=== PATIENT | male | born 1945 | race Caucasian/White ===

== ENCOUNTER 2018-12-11 18:39 | Emergency (ER) | payer MEDICARE, BC ==
[2018-12-11] MEDS ORDERED: Aspirin 81 MG Tab.Chew PO ONE (18:47)
--- NOTE | 2018-12-11 19:06 | EDM.PDOC ---
ED HPI GENERAL MEDICAL PROBLEM - General Chief Complaint: Chest Pain Stated Complaint: SOB, Dizziness, Jaw Pain Time Seen by Provider: 12/11/18 18:50 Source of Information: Reports: Patient History Limitations: Reports: No Limitations - History of Present Illness INITIAL COMMENTS - FREE TEXT/NARRATIVE: This patient is a 73 year old male that presents to the ER. Patient is accompanied by at bedside. They arrived via private vehicle. Earlier today , after 4pm the called the clinic and spoke to the nurse about the patients symptoms of chest pain, shortness of breath, jaw pain, and lightheaded. The RN Steff told me about the patient symptoms, patient was instructed to call 911 or her to go to the nearest ER. The patient arrives here in our ER now. The patent reports that over the last 3 months he has been feeling fatigued and not very well. Patient reports that he was seen in [facility] 3 days ago for that complaint. 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 He reports george carrying these items, he became very short of breath, left jaw pain, a "tick" of chest pain, fatigued, lightheaded. He reports that these symptoms were so extreme that he had to lay down on the ground for a while. He denies having syncope. The patient reports the episode lasted about 30 minutes, then went away. He reports that he had about 3 or 4 of these episodes 2 days ago. He reports that he did not have an episode yesterday. Reports that yesterday no physical activity. He reports then again today at 4pm, he was loading a zero turn mower on a truck and ratching the mower when he again experienced lightheadedness, chest pain, left jaw ache, shortness of breath, and overall fatigue/malaise. He reports it lasted for 30 minutes and did not resolve until he was done with strenuous activity. Patient reports he stopped smoking in 1984. Onset Date: 12/09/18 Location: Reports: Face, Chest Quality: Reports: Ache Severity: Moderate Improves with: Reports: Rest Worsens with: Reports: Other (walking while carrying heacy junk yard material. ) Context: Reports: Activity Associated Symptoms: Reports: Chest Pain, Malaise, Shortness of Breath, Weakness (generally). Denies: Confusion, Cough, cough w sputum, Diaphoresis, Fever/Chills, Headaches, Loss of Appetite, Nausea/Vomiting, Rash, Seizure, Syncope - Related Data Allergies Allergy/AdvReac Type Severity Reaction Status Date / Time Penicillins Allergy Hives Verified 12/11/18 18:57 Home Meds: Home Meds Naproxen [Naprosyn] 500 mg PO BID 12/11/18 [History] Pantoprazole Sodium [Protonix] 40 mg PO DAILY 12/11/18 [History] Past Medical History Respiratory History: Reports: Asthma - Past Surgical History HEENT Surgical History: Reports: Tonsillectomy GI Surgical History: Reports: Appendectomy Social & Family History - Family History Family Medical History: Noncontributory - Tobacco Use Smoking Status *Q: Former Smoker Used Tobacco, but Quit: Yes Month/Year Tobacco Last Used: 1999 Second Hand Smoke Exposure: No - Caffeine Use Caffeine Use: Reports: None ED ROS GENERAL - Review of Systems Review Of Systems: See Below Constitutional: Reports: Malaise, Weakness, Fatigue HEENT: Reports: No Symptoms Respiratory: Reports: Shortness of Breath. Denies: Wheezing, Pleuritic Chest Pain, Cough, Sputum, Hemoptysis Cardiovascular: Reports: Chest Pain ("tick"), Dyspnea on Exertion, Lightheadedness, Other (left jaw ache). Denies: Edema, Palpitations, Syncope Endocrine: Reports: No Symptoms GI/Abdominal: Denies: Abdominal Pain, Diarrhea, Nausea, Vomiting : Reports: No Symptoms Musculoskeletal: Reports: No Symptoms Skin: Reports: No Symptoms. Denies: Cyanosis, Jaundice, Diaphoresis, Rash Neurological: Reports: Dizziness, Weakness (generalized. Not unilateral) Psychiatric: Reports: No Symptoms Hematologic/Lymphatic: Reports: No Symptoms Immunologic: Reports: No Symptoms ED EXAM, GENERAL - Physical Exam Exam: See Below Exam Limited By: No Limitations General Appearance: Alert, WD/WN, No Apparent Distress Eye Exam: Bilateral Eye: Normal Inspection, PERRL Ears: Normal External Exam, Normal Canal, Hearing Grossly Normal, Normal TMs Ear Exam: Bilateral Ear: Auricle Normal, Canal Normal, TM normal Nose: Normal Inspection, Normal Mucosa, No Blood Throat/Mouth: Normal Inspection, Normal Lips, Normal Teeth, Normal Gums, Normal Oropharynx, Normal Voice, No Airway Compromise Head: Atraumatic, Normocephalic Neck: Normal Inspection, Supple, Non-Tender, Full Range of Motion Respiratory/Chest: No Respiratory Distress, Lungs Clear, Normal Breath Sounds, No Accessory Muscle Use, Chest Non-Tender. No: Respiratory Distress, Accessory Muscle Use Cardiovascular: Normal Peripheral Pulses, Regular Rate, Rhythm (60 on exam), No Edema, No Gallop, No JVD, No Murmur, No Rub Peripheral Pulses: 2+: Carotid (L), Carotid (R), Radial (L), Radial (R), Posterior Tibial (L), Posterior Tibial (R) GI/Abdominal: Normal Bowel Sounds, Soft, Non-Tender, No Organomegaly, No Distention, No Abnormal Bruit, No Mass, Pelvis Stable, Hernia (small reduced umbilical) (Male) Exam: Deferred Rectal (Males) Exam: Deferred Back Exam: Normal Inspection, Full Range of Motion Extremities: Normal Inspection, Normal Range of Motion, Non-Tender, No Pedal Edema, Normal Capillary Refill Neurological: Alert, Oriented, CN II-XII Intact, Normal Cognition, Normal Gait, No Motor/Sensory Deficits Psychiatric: Normal Affect, Normal Mood Skin Exam: Warm, Dry, Intact, Normal Color, No Rash Lymphatic: No Adenopathy EKG INTERPRETATION EKG Date: 12/11/18 Time: 18:45 Rate (Beats/Min): 58 P-Wave: Present QRS: Normal ST-T: Normal QT: Normal Comparison: NA - No Prior EKG Course - Vital Signs Last Recorded V/S: Last Vital Signs Temp 98.4 F 12/11/18 18:48 Pulse 56 L 12/11/18 19:45 Resp 18 12/11/18 19:45 BP 154/75 H 12/11/18 19:45 Pulse Ox 99 12/11/18 19:45 - Orders/Labs/Meds Orders: Active Orders 24 hr Category Date Time Status EKG Documentation Completion [RC] STAT Care 12/11/18 18:45 Active Chest 2V [CR] Stat Exams 12/11/18 19:04 Taken EKG 12 Lead [EK] Routine Ther 12/11/18 19:04 Stop Req Labs: Laboratory Tests 12/11/18 12/11/18 12/11/18 Range/Units 19:04 19:04 19:04 WBC 8.8 (5.0-10.0) 10^3/uL RBC 4.84 (4.50-6.00) 10^6/uL Hgb 14.1 (14.0-18.0) g/dL Hct 40.6 (40.0-54.0) % MCV 83.9 (82.0-94.0) fL MCH 29.1 (27.0-32.0) pg MCHC 34.7 (33.0-38.0) g/dL RDW Coeff of James 13.1 (11.0-15.0) % Plt Count 249 (150-400) 10^3/uL Neut % (Auto) 57.9 (35-85) % Lymph % (Auto) 23.2 (10-55) % Yancey % (Auto) 11.9 (0-16) % Eos % (Auto) 6.0 H (0-5) % Baso % (Auto) 1.0 (0-3) % Neut # (Auto) 5.08 (1.80-7.00) 10^3/uL Lymph # (Auto) 2.04 (1.00-4.80) 10^3/uL Yancey # (Auto) 1.05 H (0.00-0.80) 10^3/uL Eos # (Auto) 0.53 H (0.00-0.45) 10^3/uL Baso # (Auto) 0.09 10^3/uL APTT 25.4 (23.2-32.3) SEC Sodium 141 (136-145) mEq/L Potassium 4.3 (3.5-5.0) mEq/L Chloride 105 (98-106) mEq/L Carbon Dioxide 29 (21-32) mmol/L BUN 33 H (7-18) mg/dL Creatinine 1.1 (0.7-1.3) mg/dL Est Cr Clr Drug Dosing 60.83 mL/min Estimated GFR (MDRD) > 60 (>=60) mL/min Glucose 82 (75-99) mg/dL Calcium 9.1 (8.4-10.1) mg/dL Total Bilirubin 0.8 (0.0-1.0) mg/dL AST 18 (15-37) U/L ALT 24 (12-78) U/L Alkaline Phosphatase 49 (46-116) U/L Lactate Dehydrogenase 179 (100-190) U/L Creatine Kinase 217 (35-232) U/L Troponin I < 0.017 (0.00-0.06) ng/mL NT-Pro-B Natriuret Pep 90 (0-1000) pg/mL Total Protein 6.6 (6.4-8.2) g/dL Albumin 4.0 (3.4-5.0) g/dL Meds: Medications Discontinued Medications Generic Name Dose Route Start Last Admin Trade Name Hellen PRN Reason Stop Dose Admin Aspirin 324 mg 12/11/18 18:47 12/11/18 18:57 Aspirin PO 12/11/18 18:48 324 mg ONETIME ONE Administration Nitroglycerin 1 gm 12/11/18 19:53 12/11/18 19:57 Nitro-Bid 2% TOP 12/11/18 19:54 1 gm ONETIME ONE Administration - Radiology Interpretation Free Text/Narrative:: CXR: No cardiac enlargement, no infiltrates, no pulmonary edema. - Re-Assessments/Exams Free Text/Narrative Re-Assessment/Exam: 12/11/18 19:37 Patient HEART SCORE is 5. History highly suspicious 2, age >65 2, Risk factors 1. Patient reports father had 2 MIs in his 50s. Also reports his uncles all in their 40s from MIs. 12/11/18 19:57 I called and spoke to [facility] As Dr. Stearns splicing technician. He would like for me to send the patient there. He reports patient needs an angiogram. He reports he would like me to put 1 inch nitro paste on the patient. I then spoke to hospitalist Dr. Terrazas, he has accepted the patient. Will transfer via ground ALS. Departure - Departure Time of Disposition: 20:07 Disposition: DC/Tfer to Acute Hospital 02 Reason for Transfer *Q: Primary PCI Indicated Condition: Serious Clinical Impression: Acute coronary syndrome Forms: ED Department Discharge - My Orders Last 24 Hours: My Active Orders 12/11/18 18:45 EKG Documentation Completion [RC] STAT 12/11/18 19:04 Chest 2V [CR] Stat EKG 12 Lead [EK] Routine - Assessment/Plan Last 24 Hours: My Active Orders 12/11/18 18:45 EKG Documentation Completion [RC] STAT 12/11/18 19:04 Chest 2V [CR] Stat EKG 12 Lead [EK] Routine Plan: PLEASE SEE RN NOTE FOR PFSH. This patient is being transferred via ground ALS to [facility]. The risk and benefits have been explained to the patient. The risk of transfer is mvc, , cardiac arrest, [place]. The benefits of staying in [place] is close to home. The risk of staying in [place] is , cardiac , [place]. The benefits of transfer are cardiac intervention, tooling specialist.
[2018-12-11 19:40] LABS: CHLORIDE,CL 105 mEq/L (98-106); SODIUM,NA 141 mEq/L (136-145)
[2018-12-11] MEDS ORDERED: Nitroglycerin 2% Oint 1 GM UD Packet TOP ONE (19:53)
== END 2018-12-11 20:45 ==
LOC: CC.ED 18:39
DX: I24.9 Acute ischemic heart disease, unspecified (principal); Z88.0 Allergy status to penicillin; Z79.899 Other long term (current) drug therapy; Z87.891 Personal history of nicotine dependence
CPT/HCPCS: 36415; 71046; 80053; 82550; 83615; 83880; 84484; 85025; 85730; 93005; 99284; 99285-25; A9270-GY